=== PATIENT | female | born 1950 | race Caucasian/White ===

== ENCOUNTER 2024-06-18 14:18 | Outpatient (AMB) | payer OTHER, SELFPAY ==
--- NOTE | 2024-06-18 14:22 | A.OFFVIS_ITS ---
Vital Signs 06/18/24 14:34 Height 5 ft 3.5 in Weight 162 lb BMI 28.2 BP 118/54 L Blood Pressure Location Rt brachial Position Sitting Respiration 16 Pulse 94 Pulse Source Palpation Intake Visit Reasons: [employer]: Tremors unknown ? Parkinson's - LVM Intake Note: Pt presents for new pt consultation for tremors. Upper Marker Required: No Allergies codeine Allergy (Mild, Verified 06/18/24 14:30) Unknown HPI Comments Details: 74y/o Right handed female comes for evaluation of tremors and leg weakness She noticed postural and action tremors in both hands about 3 years ago No progression since then. She was seen by a neurologist at [facility] - had MRI brain. No diagnosis. she also has tongue tremors. The tremors are intermittent and albuterol worsens, The tremors does not bother her and does not affect herADLs.she uses both hands to lift a glass of water. Sleep is ok . she denies nightmares, vivid dreams , REM behavior disorder. Her mood is Ok and she is motivated. she did not notice any change in her speech or any drooling. No dizziness , no double vision . She has constipation and mild urgency she also has peripheral neuropathy and has weakness in legs. when she goes to bed at night she has discomfort in her legs.she moves around but is able to fall asleep. she also has back pain for past 8 months and has MRI scheduled [facility] Medical History Gait abnormality Occasional tremors Tremor Osteoarthritis Multiple pulmonary nodules Left knee pain Lactic acid acidosis Hypothyroidism Hyperlipidemia Hyperhidrosis HTN (hypertension) Hiatal hernia GERD (gastroesophageal reflux disease) Fibromyalgia Depression COPD (chronic obstructive pulmonary disease) Chronic pain Atherosclerosis of artery Anxiety Surgical History (Updated 06/18/24 @ 15:10 by Shani Banks MD) History of lumbar surgery S/P rotator cuff repair H/O breast biopsy H/O total hysterectomy Social History Patient Tobacco Use Status: Current everyday Tobacco user Physical Exam Vital Signs: Last Vital Signs Pulse 94 06/18/24 14:34 Resp 16 06/18/24 14:34 BP 118/54 L 06/18/24 14:34 BMI result Body Mass Index 28.2 Const General: cooperative, healthy appearing and comfortable Nutritional Appearance: average body habitus Orientation/consciousness: patient oriented x3 Eyes Pupils: Equal, round and reactive pupils present Neuro Other: Tongue tremors mild lucrecia UE postural and cation tremors slow antalgic gait General: patient oriented x3 Cranial nerves: Yes Facial sensation intact/muscles of mastication intact, Yes Equal, round and reactive pupils present, Yes Bilaterally intact EOM present, Yes Nystagmus not present, Yes Normal facial strength present, Yes Midline t ongue present and Yes Symmetric palate elevation present Cognition (Neuro): normal cognition Gait exam (Neuro): Antalgic gait present Motor exam (neuro): 5/5 motor strength present throughout and Normal motor muscle tone present throughout Deep tendon reflexes (DTR's): Right triceps reflex intensity grade: 2+, Left triceps reflex intensity grade: 2+, Rt Biceps (C5, C6): 2+, Left biceps reflex intensity grade: 2+, Right brachioradialis reflex intensity grade: 2+, Left brachioradialis reflex intensity grade: 2+, Right patellar reflex intensity grade: 3+ and Left patellar reflex intensity grade: 3+ Assessment & Plan Assessment & Plan (1) Occasional tremors: Code(s): R25.1 - Tremor, unspecified Category: Medical (2) Gait abnormality: Comment: ? lumbar spondylosis Code(s): R26.9 - Unspecified abnormalities of gait and mobility Category: Medical Plan No evidence of parkinsons on todays exam Her tremors are likely exaggerated physiological, senile tremors. I will monitor it clinically MRI LS spine-will review results and consider a repeat EMG and PT Coding Level of Care Code New Pt Level 4 (37261) Diagnoses Occasional tremors R25.1 Gait abnormality R26.9
[2024-06-18 14:34] VITALS: BP 118/54; PULSE 94; RESP 16; BMI 28.2
== END 2024-06-18 15:16 | disposition home or self-care (01) ==
PROVIDERS: PCP Internal Medicine; Visit Provider Psychiatry & Neurology Neurology
DX: R25.1 Tremor, unspecified (principal); R26.9 Unspecified abnormalities of gait and mobility
CPT/HCPCS: 99204

== ENCOUNTER → 2024-06-18 14:18 | Outpatient (BNVA) | payer OTHER, SELFPAY | PROVIDERS: PCP Internal Medicine; Visit Provider Psychiatry & Neurology Neurology ==